=== PATIENT | male | born 1960 | race Caucasian/White ===

== ENCOUNTER 2017-01-14 11:49 | Emergency (ER) | payer MEDICARE, OTHER | END 2017-01-14 14:45 | disposition left against medical advice (07) | LOC: ER1 11:49 | DX: S06.0X1A Concussion with loss of consciousness of 30 minutes or less, initial encounter (principal); S29.9XXA Unspecified injury of thorax, initial encounter; S19.9XXA Unspecified injury of neck, initial encounter; F17.210 Nicotine dependence, cigarettes, uncomplicated; Z88.0 Allergy status to penicillin; V89.9XXA Person injured in unspecified vehicle accident, initial encounter | CPT/HCPCS: 99284 ==